=== PATIENT | male | born 1975 | race Caucasian/White ===

== ENCOUNTER 2016-12-02 08:39 | Day surgery (SDC) | payer OTHER ==
[2016-12-02] VITALS (9 sets, daily range): BP systolic 122–134; BP diastolic 73–80; PULSE 68–77; RESP 11–18; O2SAT 94–100
[~2016-12-02] VITALS: Ht 180.3 cm; Wt 92.1 kg
[~2016-12-02 08:39] MED LIST: OMEP20CA11 PO; TAMS0.4C98 PO
[2016-12-02] MEDS ORDERED: Propofol 10,000 mCg/mL 20 mL Inj ONE (08:40)
[2016-12-02] MEDS ORDERED: Ondansetron 2 mg/mL 2 mL Inj ONE (08:40)
[2016-12-02] MEDS ORDERED: fentaNYL-PF 50 mCg/mL 2 mL Inj ONE (08:40)
[2016-12-02] MEDS: Lactated Ringer's 1,000 ML IV SCH ×2 (09:00→11:03)
[2016-12-02] MEDS ORDERED: Lactated Ringer's 500 ML IV PRN (11:04)
[2016-12-02] MEDS ORDERED: Lactated Ringer's 1,000 ML IV SCH (11:04)
--- NOTE | 2016-12-02 11:04 | PCM.HPANE ---
Patient Data Surgeon Admitting Provider: Attending Provider:Viral Nogueira DO Primary Care Physician:Leah Mulligan PA-C Other Provider:Em Flowers Anesthesia Reason for Visit Left Hand Mass / Soft Tissue Ht/WT & BMI Height (Feet): 5 Height (Inches): 11 Weight (Kilograms): 92.1 Body Mass Index 28.00 Allergies Coded Allergies: No Known Allergies (Unverified , 12/01/16) Past Anesthesia History Anesthesia History: Denies:: Anesthesia Reactions, Malignant Hyperthermia Diabetes History Hx Diabetes?: No MRSA MRSA: No Medications Hypertension Medication: No Home Meds Incl Beta Yonathan: No Reported Medications Tamsulosin (Flomax)0.4 Mg Capsule0.4 Mg PO DAILY Ref 0 10/27/16 Omeprazole 20 Mg Capsule.dr20 Mg PO DAILY Ref 0 10/27/16 Discontinued Reported Medications Ofloxacin 5 Ml Drops5 Ml OT BID 10 drops of 0.3% soln, bid 10/27/16 History History of ENT Problems?: No Hx of Heart Problems?: No Cardiovascular History: Denies:: AICD Heart Murmur Hypertension Irregular Heartbeat Pacemaker Hx of Respiratory Problem?: Yes Respiratory History: Denies:: Asthma COPD Emphysema Use of C-PAP Machine (had prior surgery for sleep apnea) Hx Neurologic Problems?: No Neurological History: Denies:: CVA Multiple Sclerosis Parkinson's Disease Hx of GI Problems?: Yes Gastrointestinal History: Positive for:: Gastroesphageal Reflux Heartburn Hx of Problems?: No Male Hx: Positive for:: Prostate Problems (bph) Musculoskeletal History: Positive for:: Back Injury (hx of L4-5 disc ) Musculoskeletal Trauma (left hand soft tissue mass current admission problem) Hx of Psycho/Social Problems?: No Psycho Social History: Positive for:: Anxiety Hx Surgeries?: Yes (for sleep apnea, L4-5 disc, vas) Hx Any Other Health Problems?: Yes Other History: Denies:: Cancer Thyroid Disease Hx Diabetes: No Hx Alcohol Use: YesAlcoholic Drinks Per Day: occasionally Smoking Status: Former Smoker Have You Smoked inLast 12 mo: No Stop/Bang S-Snoring: Do You Snore Loudly: No T-Tired: feel tired, fatigued: Yes O-Obsered: Observed not breath: No P-Blood Pressure: treated: No B- Body Mass Index > 35 kg/m2: No A- Age over 50: No N- Neck Large Circumference: No G- Gender Male: Yes [id number] Total Score: 2 Risk Assessment Category Category 1A: Patient has history of documented sleep apnea, and HAS NOT received any narcotic, sedative or anesthesia administration during this stay. Category 1B: Patient has history of documented sleep apnea, and HAS received any narcotic , sedative or anesthesia administration during this stay Category 2: Patient has SUSPECTED Obstructive Sleep Apnea, and HAS received any narcotic , sedative or anesthesia administration during this stay. Category 3: Patient has SUSPECTED Obstructive Sleep Apnea and HAS NOT received narcotic, sedative or anesthesia administration during this stay. Category 4: Outpatient in Procedural Areas with known sleep apnea or who screen positive for High Risk via the STOP/BANG questionnaire. Exam Exam Vital Signs Vital Signs Date Time Temp Pulse Resp B/P Pulse Ox O2 Delivery O2 Flow Rate FiO2 12/02/16 09:08 36.5 68 18 122/73 95 Room Air General Appearance: Alert HEENT/AIRWAY: MP 2 Lungs: Clear to Auscultation Heart: Exam Unremarkable Meds/Labs/Diagnostics Admission Meds Current Medications Lactated Ringer's (Lr) 1,000 ml @ 120 mls/hr Q8H20M IV Last administered on t 09:00; Start 12/02/16 at 05:00; Stop 12/02/16 at 13:19 Plan Impression Patient chart reviewed, patient interviewed and anesthestic plan with risks, benefits, and alternatives discussed, and informed consent obtained. NPO Status: 12/01/16 ASA Physical Status: ASA1 Normal Healthy Anesthetic Plan: GA Bene/Risks/Altern/Consents: Yes HP Complete Prior to Induction: Yes Delfino Briscoe MD Dec 02, 2016 11:04
[2016-12-02] MEDS ORDERED: Ondansetron 2 mg/mL 2 mL Inj IVPUSH PRN (11:05)
[2016-12-02] MEDS ORDERED: EPHEDrine Sulfate 50 mg/mL Inj IVPUSH PRN (11:05)
[2016-12-02] MEDS ORDERED: MetoCLOpramide 5 mg/mL 2 mL Inj IVPUSH PRN (11:05)
[2016-12-02] MEDS ORDERED: Phenylephrine 10,000 mCg/mL Inj IVPUSH PRN (11:05)
[2016-12-02] MEDS ORDERED: Dexamethasone 4 mg/mL Inj IVPUSH PRN (11:05)
[2016-12-02] MEDS ORDERED: HYDROmorphone 1 mg/mL Inj IVPUSH PRN (11:05)
[2016-12-02] MEDS ORDERED: fentaNYL-PF 50 mCg/mL 2 mL Inj IVPUSH PRN (11:05)
[2016-12-02] MEDS ORDERED: oxyCODONE-Acetamin 5-325 mg Tablet PO PRN (11:15)
[2016-12-02] MEDS ORDERED: Lidocaine 1%-Epi 1:100,000 20 mL Inj INFILTRATE ONE (11:24)
--- NOTE | 2016-12-02 13:07 | PCM.ANEP2 ---
Post Anesthesia Evaluation ASA/CMS Post Anesthesia VS in Patient's Normal Range?: Yes Resp Stable; Airway Patent?: Yes CV Function & Hydration Stable: Yes Mental Status Recovered?: Yes Pain control Satisfactory?: Yes N/V Control Satisfactory?: Yes Early,Delfino Soto MD Dec 02, 2016 13:07
--- NOTE | 2016-12-02 13:07 | PCM.ANEP1 ---
Post Anesthesia Phase 1 PACU Phase 1 Assessment Vital Signs Vital Signs Date Time Temp Pulse Resp B/P Pulse Ox O2 Delivery O2 Flow Rate FiO2 12/02/16 12:40 72 11 126/73 94 Room Air 12/02/16 12:35 73 13 123/77 95 Room Air 12/02/16 12:30 36.6 73 11 123/73 96 Room Air 12/02/16 12:25 76 12 130/76 96 Room Air 12/02/16 12:20 75 12 132/80 99 Room Air 12/02/16 12:15 75 12 134/74 100 Simple Mask 8 12/02/16 12:10 77 13 125/73 100 Simple Mask 8 12/02/16 12:07 36.8 132/80 12/02/16 09:08 36.5 68 18 122/73 95 Room Air Anesthetic Administered: GA Level of Alertness: Awake, talking WYMAN's with Equal Strength: Yes Pain: No Nausea or Vomiting: No Airway Device: Oralpharangeal Airway Oxygen Delivery: Simple Mask Lungs: Clear to Auscultation Dermatome Level: Full Sensation Delfino Briscoe MD Dec 02, 2016 13:07
--- NOTE | 2016-12-02 15:00 | OP ---
[address] [address] OPERATIVE REPORT PATIENT: MAI ESCAMILLA : 1975 MR#: [id number] ADMIT: 12/02/2016 JOB ID: [id number] DATE OF SURGERY: 12/02/2016 PREOPERATIVE DIAGNOSIS(ES): Left hand soft tissue mass. POSTOPERATIVE DIAGNOSIS(ES): Left hand soft tissue mass. PROCEDURE: Excision of left hand mass measuring 3 cm in diameter, likely a lipoma within the digital neurovascular sheath. SURGEON: Viral Nogueira D.O. ANESTHESIA: General. HISTORY: The patient is a 41-year-old male with a several month history of left hand enlarging mass that started to become increasingly painful with gripping types of activities. The mass was overlying the second metacarpophalangeal joint. Discussed with the patient the risks, benefits, and indications to proceed with an open excision of the mass and sent it to Pathology to further identify exactly what the mass was. He understood the risks include, but not limited to, neurovascular injury, tendon injury, infection, recurrent stiffness, persistent pain which may require further intervention. The patient had all questions answered. Consent was signed and placed in chart. PROCEDURE IN DETAIL: The patient was brought to the operative suite and placed supine on the operating room table. Surgical time-out performed. Everyone in the room was in agreement. After appropriate anesthesia was obtained, a left upper arm tourniquet was applied and the left upper extremity was prepped and draped in a sterile fashion. Left upper extremity was then exsanguinated and the tourniquet inflated to 250 mmHg. A Letty incision was made centered overlying the second metacarpophalangeal joint. Dissection was carried down through subcutaneous tissues and a large lipomatous mass was encountered. The mass was dissected down as it communicated with the radial neurovascular bundle. The mass was wrapped around both the digital artery as was the digital nerve. The mass was freed up from the soft tissues and the sheath and fully excised. The entire mass dimension was approximately 3 cm in diameter. Copious irrigation was then performed and the skin closed with 5-0 nylon in a simple interrupted fashion. The patient was then placed in a bulky soft dressing. ESTIMATED BLOOD LOSS: Less than 5 cc. COMPLICATIONS: None. DISPOSITION: The patient tolerated the procedure well. Anesthesia was reversed. The patient was transferred back to recovery. SPECIMENS: A left index finger soft tissue mass measuring 3 cm in diameter. POSTOPERATIVE PLAN: The patient followup in office in two weeks. I will go over the pathology report with him at that time and have him start working on range of motion and scar mobilization.
--- NOTE | 2016-12-15 08:55 | PATH ---
SURGICAL PATHOLOGY Attending Physician:Viral Nogueira MD CASE STATUS: Signed Out * Amended * PATIENT NAME: MAI ESCAMILLA PID: [id number] : 1975 DATE COLLECTED:12/02/2016 19:44 SPECIMEN: Soft Tissue Mass, Biopsy CLINICAL HISTORY: LEFT HAND MASS/SOFT TISSUE 1). LEFT HAND SOFT TISSUE MASS TIF 11:48 FINAL DIAGNOSIS: Left Hand Soft Tissue Mass, Excision: Benign, predominantly lipomatous lesion. Outside consultation pending ([facility], [place], [place]); that interpretation will be reported as an addendum ICD10 D17.9 This case was reviewed and interpreted by Dr. Beverley Becker. The final diagnosis is unchanged. This amendment is issued in order for the report to cross the interface and be available in the hospital electronic medical record. GROSS DESCRIPTION: The specimen is received in one formalin filled container labeled with the patient's name, sublabeled "left hand soft tissue mass" and consists of a yellow-hicks portion of soft tissue which measures 4.0 x 1.5 x 1.2 CM. Inked blue. 4 farm loan representative sections are submitted in 2 cassettes. 12/02/2016 DAC ICD-9 CODES: CPT CODES: 02402 PROCEDURE/ADDENDA: Addendum SPI Addendum Diagnosis Slides reviewed at [facility] Pathology, by Dr. 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 See Comment. Comment: The histologic sections demonstrate predominantly mature adipose tissue. In addition there interspersed thin-walled and thick-walled blood vessels. The thick-walled vessels have abnormal appearing vascular amaro. As such, we would classify this as a vascular malformation/hemangioma with extensive lipomatous change rather than a lipoma. On occasion benign vascular tumor will have extensive lipomatous change making distinction from lipoma problematic. Addendum Comment Please see [facility] Pathology report [id number] for complete details. Electronically Signed Out Beverley Becker MD AMENDMENT(S): Amended: 12/15/2016 by Xi Cabrales Reason:Miscellaneous The final diagnosis is unchanged. This amendment is issued in order for the report to cross the interface and be available in the hospital electronic medical record. Previous Signout Date: 12/08/2016 Electronically Signed Out Rosa Eduardo MD [facility] [address], [place] [address] Technical component performed at [facility], [address], [place], [address]
== END 2016-12-02 23:59 | disposition home or self-care (01) ==
LOC: SAS 08:39
PROVIDERS: ATTEND Orthopaedic Surgery
DX: D17.22 Benign lipomatous neoplasm of skin and subcutaneous tissue of left arm (principal); I10 Essential (primary) hypertension; K21.9 Gastro-esophageal reflux disease without esophagitis; Z87.891 Personal history of nicotine dependence
CPT/HCPCS: 26113; 88304; J1170; J2405; J3010; J7120